=== PATIENT | female | born 1975 ===

== ENCOUNTER 2017-11-16 18:04 | Emergency (ER) | payer OTHER ==
[2017-11-16 18:30] VITALS: RESP 18; O2SAT 100
[2017-11-16 19:51] LABS: BASO % 0.6 % (0.0-2.0); EOS # 0.1 K/uL (0.0-0.7); EOS % 1.3 % (0.0-4.0); HEMOGLOBIN 13.5 g/dL (11.0-16.0); LYMPH # 2.1 K/uL (1.0-4.3); MEAN CELL VOLUME 87.3 fL (81.0-99.0); MEAN CORPUSCULAR HEMOGLOBIN 29.6 pg (27.0-31.0); MEAN CORPUSCULAR HGB CONC 33.9 g/dL (33.0-37.0); MEAN PLATELET VOLUME 7.9 fL (7.2-11.7); MONO # 0.5 K/uL (0.0-0.8); MONO % 6.5 % (0.0-10.0); NEUT # 5.4 K/uL (1.8-7.0); NEUT % 65.6 % (50.0-75.0); RBC 4.55 Mil/uL (3.80-5.20); RED CELL DISTRIBUTION WIDTH 13.2 % (11.5-14.5); WHITE BLOOD COUNT 8.2 K/uL (4.8-10.8)
--- NOTE | 2017-11-16 19:51 | C.PDOC ---
History Of Present Illness 42yo female, with no known past medical history, originally from [facility] but moved to the 6[place] ago, is complaining of pain to right side of her neck. She states she has a mass on her neck for "a long time" which has increased in size over the past year. Patient states the past 3 days, she had had pain to the right side of her neck. Patient states in the past, she has been informed that she has thyroid nodules but has not taken any medication for her symptoms. She also reports occasional episodes of palpitations. Patient denies any headache, fever, chills, heat/cold intolerance, weight changes. Patient's LMP was on . She has no other medical complaints. Time Seen by Provider: 11/16/17 19:15 Chief Complaint (Nursing): ENT Problem History Per: Patient History/Exam Limitations: no limitations Onset/Duration Of Symptoms: Days (3) Current Symptoms Are (Timing): Still Present Additional History Per: Patient Past Medical History Reviewed: Historical Data, Nursing Documentation, Vital Signs Vital Signs: Last Vital Signs Temp 97.8 F 11/16/17 22:21 Pulse 70 11/16/17 22:21 Resp 18 11/16/17 22:21 BP 110/70 11/16/17 22:21 Pulse Ox 100 11/16/17 22:27 Surgical History: No Surg Hx Family History: States: No Known Family Hx - Social History Hx Alcohol Use: No Hx Substance Use: No - Immunization History Hx Tetanus Toxoid Vaccination: No Hx Influenza Vaccination: No Hx Pneumococcal Vaccination: No Review Of Systems Except As Marked, All Systems Reviewed And Found Negative. Constitutional: Negative for: Fever, Chills, Weight loss, Other (heat/cold intolerance) Musculoskeletal: Positive for: Neck Pain Neurological: Negative for: Headache Physical Exam - Physical Exam Appears: Non-toxic, No Acute Distress Skin: Warm, Dry Head: Atraumatic, Normacephalic Eye(s): bilateral: Normal Inspection, PERRL, EOMI Ear(s): Bilateral: Normal Nose: Normal Oral Mucosa: Moist Throat: Normal, No Erythema, No Exudate Neck: Normal ROM, Supple, Other (mass noted to anterior neck; tenderness to right side of thyroid, area enlarged with nodule. No erythema noted.) Chest: Symmetrical Cardiovascular: Rhythm Regular, No Murmur Respiratory: Normal Breath Sounds, No Wheezing Gastrointestinal/Abdominal: Normal Exam, Soft, No Tenderness Extremity: Bilateral: Atraumatic, Normal Color And Temperature, Normal ROM Neurological/Psych: Oriented x3, Normal Speech Gait: Steady ED Course And Treatment - Laboratory Results Result Diagrams: 11/16/17 19:47 11/16/17 19:47 Lab Interpretation: No Acute Changes ECG: Interpreted By Me, Viewed By Me ECG Rhythm: Sinus Rhythm ECG Interpretation: No Acute Changes Rate From EC O2 Sat by Pulse Oximetry: 100 (RA) Pulse Ox Interpretation: Normal - CT Scan/US Thyroid Us Other Rad Studies (CT/US): Read By Radiologist, Radiology Report Reviewed CT/US Interpretation: US Thyroid FINDINGS: Left thyroid lobe: 4.4 x 1.0 x 1.4 cm in size. 0.2 x 0.1 x 0.2 cm cyst or nodule within midpole. Right thyroid lobe: 6.7 x 2.6 x 3.2 cm in size. 3.6 x 2.2 x 3.1 cm heterogeneous nodule with. peripheral vascularity within midpole. Isthmus: 0.32 cm in width. No nodules. Lymph nodes: No lymphadenopathy. IMPRESSION: 1. Heterogeneous nodule within right lobe, indeterminate. Clinical correlation and follow up are. recommended. 2. Incidental/non-acute findings are described above. Neck CT Other Rad Studies (CT/US): Read By Radiologist, Radiology Report Reviewed CT/US Interpretation: Accession No. : [id number]. Patient Name / ID : JENNIFFER POWELL / [id number]. Exam Date : 11/16/2017 21:28:56 ( Approved ). Study Comment : Sex / Age : F / 42Y. Creator : Taye Anderson MD. Dictator : Intervention Analyst : [place] : Taye Anderson MD. Approver2 : Report Date : 11/16/2017 22:00:00. My Comment : . [facility]. [address] [place] [id number]. Tel. no. . . . Patient Name: ANDRE PEREZ . Pt. Address: [address] [place] [address]. Rec #: [id number]. [place] [address]: Africa Ayoub Pt Order Location: [facility] : 1975 Female Age: 42 Order #: [id number]. Reason for exam: right neck mass. . . . . . CT Scan. . . NECK SOFT TISSUE W/CONTRAST Exam Date: . . This imaging exam was performed at [facility]. EXAM: CT Neck With Intravenous Contrast. . CLINICAL HISTORY: 42 years old, female; Signs and symptoms; Mass, lump, or swelling in neck;. Additional info: Right neck mass. . TECHNIQUE: Axial computed tomography images of the neck with intravenous contrast. All. CT scans at this facility use one or more dose reduction techniques, viz.: automated exposure control; ma/kV adjustment per patient size (including. targeted exams where dose is matched to indication; i.e. head); or iterative. reconstruction technique. Coronal and sagittal reformatted images were created and reviewed. . CONTRAST: 100 mL of visipaque 320 administered intravenously. . COMPARISON: No relevant prior studies available. . FINDINGS: Nasopharynx: Unremarkable. Oropharynx: No significant tonsillar enlargement. No peritonsillar abscess. Hypopharynx: Unremarkable. Larynx: Unremarkable. Normal epiglottis. Trachea: Unremarkable. Retropharyngeal space: Unremarkable. Submandibular/parotid glands: Unremarkable. Glands are normal in size. Thyroid: 2.7 x 2.3 x 3.4 cm heterogeneous nodule within right lobe. Bones/joints: No acute fracture. Soft tissues: Unremarkable. Vasculature: No acute findings. Lymph nodes: No pathologically enlarged lymph nodes. Sinuses: Unremarkable. No air-fluid levels. Mastoid air cells: No mastoid effusion. Orbits: Unremarkable as visualized. Lung apices: Predominately linear, partially calcified but partially. spiculated opacity within right lung apex. Lungs: Several calcified granulomas. . IMPRESSION: 1. Thyroid nodule. See ultrasound report. Clinical correlation and follow up. are recommended. 2. Probable right apical scarring. Suggest followup to ensure stability. 3. Incidental/ non-acute findings are described above. . . THIS REPORT CONTAINS FINDINGS THAT MAY BE CRITICAL TO PATIENT CARE. The. findings were verbally communicated via telephone conference with physician. culinary assistant Africa Scott at 10:00 PM EDT on 11/16/2017. The findings were. acknowledged and understood. . Dictated By: Taye Anderson MD. Dictated Date/Time: 11/16/172199. Signed By: Taye Anderson MD. Date Signed: 11/16/172199. Transcribed By: [facility]. Transcribe Date/Time: 11/16/172199 Medical Decision Making Medical Decision Making: Impression: anterior neck mass and pain Plan: * EKG * Labs * Thyroid US Progress: Labs reviewed and unremarkable, normal thyroid profile and no leukocytosis. EKG was normal sinus. Imaging reports reviewed, see full report. US Thyroid FINDINGS: IMPRESSION: 1. Heterogeneous nodule within right lobe, indeterminate. Clinical correlation and follow up are recommended. 2. Incidental/non-acute findings are described above. CT Neck: IMPRESSION: 1. Thyroid nodule. See ultrasound report. Clinical correlation and follow up are recommended. 2. Probable right apical scarring. Suggest followup to ensure stability. 3. Incidental/non-acute findings are described above. Re-Eval: Patient remained well, laying comfortably on stretcher in no distress. She has no fever and normal stable vital signs. Discussed results with patient, and copy of lab and imaging reports provided. I explained she will need to follow up in clinic for further care. Patient feels comfortable going home and will be discharged. Instructed to return to ER if symptoms worsen or new symptoms arise. Disposition Counseled Patient/Family Regarding: Studies Performed, Diagnosis, Need For Followup - Disposition Referrals: Mel Kumar MD [Staff Provider] - [place] [facility] [Outside] Disposition: HOME/ ROUTINE Disposition Time: 22:06 Condition: GOOD Additional Instructions: Your labs were normal Your ultrasound and scan shows you have right sided nodule on thyroid You need to follow up with clinic for further care and will likely need biopsy You may call [facility] for any assistance [phone]. Tus laboratorios fueron normales Reynolds ultrasonido y exploracin muestra que tiene un ndulo en el lado derecho de la tiroides Debe seguir con la clnica para recibir ms atencin y es probable que necesite julita biopsia Puede llamar al servicio de sound effects person para obtener asistencia [phone]. Instructions: Thyroid Nodules Forms: [employer] (Kinyarwanda) Print Language: BELARUSIAN - POA Present On Arrival: None - Clinical Impression Clinical Impression: Thyroid nodule - PA / MANAGER OF MAINTENANCE / Resident Statement MD/DO has reviewed & agrees with the documentation as recorded. - Scribe Statement The provider has reviewed the documentation as recorded by the Scribe (Mariam Jaramillo) Provider Attestation: All medical record entries made by the Scribe were at my direction and personally dictated by me. I have reviewed the chart and agree that the record accurately reflects my personal performance of the history, physical exam, medical decision making, and the department course for this patient. I have also personally directed, reviewed, and agree with the discharge instructions and disposition.
[2017-11-16 19:54] LABS: HCG,QUALITATIVE URINE NEGATIVE (NEGATIVE)
[2017-11-16 19:56] LABS: SQUAMOUS EPITHIAL 1 /hpf (0-5); URINE BILIRUBIN NEGATIVE (NEGATIVE); URINE BLOOD 1+ (NEGATIVE); URINE CLARITY Clear (Clear); URINE COLOR Yellow (YELLOW); URINE GLUCOSE (UA) NORMAL (Normal); URINE LEUKOCYTE ESTERASE NEG Leu/uL (Negative); URINE PROTEIN NEGATIVE (NEGATIVE); URINE UROBILINOGEN NORMAL mg/dL (0.2-1.0)
[2017-11-16 20:03] LABS: ALB/GLOB RATIO 1.3 (1.0-2.1); ALBUMIN 4.1 g/dL (3.5-5.0); ALT/SGPT 24 U/L (9-52); AST/SGOT 18 U/L (14-36); BLOOD UREA NITROGEN 20 mg/dL (7-17); CALCIUM 8.1 mg/dl (8.6-10.4); GFR AFRICAN-AMERICAN > 60; GFR NON-AFRICAN AMERICAN > 60
[2017-11-16] MEDS ORDERED: Iodixanol 320 MG/ML 100 ML BOTTLE IV ONE (21:00)
--- NOTE | 2017-11-16 21:51 | US ---
EXAM: US Soft Tissues Head and Neck, Thyroid CLINICAL HISTORY: 42 years old, female; Pain; Neck pain; Additional info: Painful ant area, h. O nodules TECHNIQUE: Real-time ultrasound scan of the thyroid gland and soft tissues of the neck with image documentation. COMPARISON: No relevant prior studies available. FINDINGS: Left thyroid lobe: 4.4 x 1.0 x 1.4 cm in size. 0.2 x 0.1 x 0.2 cm cyst or nodule within midpole. Right thyroid lobe: 6.7 x 2.6 x 3.2 cm in size. 3.6 x 2.2 x 3.1 cm heterogeneous nodule with peripheral vascularity within midpole. Isthmus: 0.32 cm in width. No nodules. Lymph nodes: No lymphadenopathy. IMPRESSION: 1. Heterogeneous nodule within right lobe, indeterminate. Clinical correlation and follow up are recommended. 2. Incidental/non-acute findings are described above.
--- NOTE | 2017-11-16 22:01 | CT ---
EXAM: CT Neck With Intravenous Contrast CLINICAL HISTORY: 42 years old, female; Signs and symptoms; Mass, lump, or swelling in neck; Additional info: Right neck mass TECHNIQUE: Axial computed tomography images of the neck with intravenous contrast. All CT scans at this facility use one or more dose reduction techniques, viz.: automated exposure control; ma/kV adjustment per patient size (including targeted exams where dose is matched to indication; i.e. head); or iterative reconstruction technique. Coronal and sagittal reformatted images were created and reviewed. CONTRAST: 100 mL of visipaque 320 administered intravenously. COMPARISON: No relevant prior studies available. FINDINGS: Nasopharynx: Unremarkable. Oropharynx: No significant tonsillar enlargement. No peritonsillar abscess. Hypopharynx: Unremarkable. Larynx: Unremarkable. Normal epiglottis. Trachea: Unremarkable. Retropharyngeal space: Unremarkable. Submandibular/parotid glands: Unremarkable. Glands are normal in size. Thyroid: 2.7 x 2.3 x 3.4 cm heterogeneous nodule within right lobe. Bones/joints: No acute fracture. Soft tissues: Unremarkable. Vasculature: No acute findings. Lymph nodes: No pathologically enlarged lymph nodes. Sinuses: Unremarkable. No air-fluid levels. Mastoid air cells: No mastoid effusion. Orbits: Unremarkable as visualized. Lung apices: Predominately linear, partially calcified but partially spiculated opacity within right lung apex. Lungs: Several calcified granulomas. IMPRESSION: 1. Thyroid nodule. See ultrasound report. Clinical correlation and follow up are recommended. 2. Probable right apical scarring. Suggest followup to ensure stability. 3. Incidental/non-acute findings are described above. THIS REPORT CONTAINS FINDINGS THAT MAY BE CRITICAL TO PATIENT CARE. The findings were verbally communicated via telephone conference with physician pest controller assistant Africa Scott at 10:00 PM EDT on 11/16/2017. The findings were acknowledged and understood.
[2017-11-16 22:22] VITALS: BP 110/70; PULSE 70; TEMP 97.8
== END 2017-11-16 22:25 | disposition home or self-care (01) ==
LOC: C.ER 18:04
DX: E04.1 Nontoxic single thyroid nodule (principal)
CPT/HCPCS: 70491; 76536; 80053; 81001; 84439; 84443; 84481; 84703; 85025; 93005; 99283; Q9967

== ENCOUNTER 2018-01-31 09:36 | Day surgery (SDC) | payer OTHER ==
[2018-01-31 09:42] VITALS: BMI 29.5
[2018-01-31 10:07] VITALS: O2SAT 100
--- NOTE | 2018-01-31 12:20 | CP.SDSHP ---
Same Day Surgery H & P - History Proposed Procedure: US guided FNA of right thyroid nodule Pre-Op Diagnosis: right thyroid nodule - Allergies Allergies: Allergies No Known Allergies Allergy (Verified 11/16/17 18:30) - Physical Exam Vital Signs: Vital Signs 01/31/18 09:40 Temperature 97.9 F Pulse Rate 73 Respiratory 20 Rate Blood Pressure 108/70 O2 Sat by Pulse 100 Oximetry Mental Status: Alert & Oriented x3 Neuro: WNL Heart: WNL - Impression Impression: Pt with a 3.6 cm right thyroid nodule. Plan US guided FNA. Pt. Evaluated Today:Candidate for Anesthesia & Procedure: No - Date & Time Date: 01/31/18 Time: 12:00 Short Stay Discharge - Short Stay Discharge Admitting Diagnosis/Reason for Visit: dx:E04.1-THYROID NODULE Disposition: HOME/ ROUTINE
--- NOTE | 2018-01-31 12:21 | PCM.SURG1 ---
Surgeon's Initial Post Op Note - Surgeon's Notes Surgeon: Dawit Medina MD Preschool Substitute Teacher: NONE Type of Anesthesia: Local Pre-Operative Diagnosis: Thyroid nodule Operative Findings: 3.6 cm right thyroid complex nodule Post-Operative Diagnosis: Thyroid nodule Operation Performed: US guided FNA of right thyroid nodule Specimen/Specimens Removed: 25 g FNA x 5 passes Estimated Blood Loss: EBL {In ML}: 1 Blood Products Given: N/A Drains Used: No Drains Post-Op Condition: Good Date of Surgery/Procedure: 01/31/18 Time of Surgery/Procedure: 12:15
[2018-01-31 12:57] VITALS: BP 120/72; PULSE 80; RESP 18; TEMP 98
--- NOTE | 2018-02-01 10:42 | US ---
PROCEDURE: Date of Procedure: 01/31/2018 PROCEDURE: 1. Ultrasound guided FNA of right thyroid nodule, CPT 88198 2. Ultrasound guidance for FNA, [address]256 Medications: 2cc 1% Lidocaine HISTORY: Enlarged right thyroid nodule. TECHNIQUE: Following informed consent and procedure time-out, a limited ultrasound patient's neck confirmed the presence of a 3.8 cm complex right thyroid nodule which is predominantly solid. After the patient's neck was prepped and draped in the usual sterile fashion, the skin was anesthetized with 1% lidocaine. Ultrasound-guided fine needle aspiration was then performed of the dominant right thyroid nodule. A total of 5 passes were made into the nodule with 25 gauge needle under ultrasound guidance. The FNA specimen was sent for routine pathology. Post biopsy ultrasound showed no hematoma. IMPRESSION: Ultrasound-guided FNA of the dominant right thyroid nodule.
== END 2018-01-31 13:00 | disposition home or self-care (01) ==
LOC: C.SPRAD 09:36
PROVIDERS: ATTEND Radiology Vascular & Interventional Radiology
DX: E04.2 Nontoxic multinodular goiter (principal)

== ENCOUNTER 2018-09-12 13:27 | Emergency (ER) | payer OTHER ==
[2018-09-12 13:27] VITALS: BMI 29.5
--- NOTE | 2018-09-12 16:06 | C.PDOC ---
History Of Present Illness 43 year old female presents to the ED for evaluation of subjective fever, chills, cough, and myalgias which began around 2-3 days ago. Patient denies nausea, vomiting, diarrhea. HPI: Influenza Time Seen by Provider: 09/12/18 15:04 Chief Complaint: Cough, Cold, Congestion History Per: Patient Exam Limitations: no limitations Past Medical History Reviewed: Historical Data, Nursing Documentation, Vital Signs Vital Signs: Last Vital Signs Temp 98.2 F 09/12/18 14:14 Pulse 105 H 09/12/18 14:14 Resp 14 09/12/18 14:14 BP 138/80 09/12/18 14:14 Pulse Ox 99 09/12/18 14:14 - Medical History PMH: No Chronic Diseases Denies: Chronic Kidney Disease Surgical History: No Surg Hx Family History: States: Unknown Family Hx - Social History Hx Alcohol Use: No Hx Substance Use: No - Immunization History Hx Tetanus Toxoid Vaccination: No Hx Influenza Vaccination: No Hx Pneumococcal Vaccination: No Review Of Systems Constitutional: Positive for: Fever, Chills Respiratory: Positive for: Cough Gastrointestinal: Negative for: Nausea, Vomiting, Diarrhea Musculoskeletal: Positive for: Other (diffuse myalgias ) Physical Exam - Physical Exam Appears: Non-toxic, No Acute Distress, Other (mildy uncomfortable ) Skin: Normal Color, Warm, Dry Head: Atraumatic, Normacephalic Eye(s): bilateral: Normal Inspection Oral Mucosa: Moist Neck: Supple Chest: Symmetrical, No Deformity, No Tenderness Cardiovascular: Rhythm Regular, No Murmur Respiratory: Normal Breath Sounds, No Rales, No Rhonchi, No Wheezing Extremity: Normal ROM, Capillary Refill (less than 2 seconds ) Neurological/Psych: Oriented x3, Normal Speech, Normal Cognition Medical Decision Making Medical Decision Making: Progress: Patient was found to be febrile prior to discharge. Tylenol PO given. On reassessment, patient is resting comfortably, showing no signs of distress and is stable for discharge. Patient is advised to follow up with PMD within 1-2 days for further evaluation. Will discharge home with Tylenol and Tamiflu. - ECG O2 Sat by Pulse Oximetry: 99 Disposition Counseled Patient/Family Regarding: Diagnosis, Need For Followup, Rx Given - Disposition Referrals: [facility] [Outside] [facility] [Outside] Disposition: HOME/ ROUTINE Disposition Time: 16:04 Condition: GOOD Additional Instructions: [place] Tylenol para el dolor segn las indicaciones. Acabado Tamiflu. Aumentar el reposo en cama y aumentar la ingesta de lquidos. Seguimiento en clnica mdica en pocos patel. Regrese a la lizzie de emergencias para los sntomas peores. Take Tylenol for pain as directed. Finish Tamiflu. Increase bed rest and increase fluid intake. Follow up in medical clinic in a few days. Return to ER for worse symptoms. Prescriptions: Acetaminophen [Tylenol 325mg tab] 650 mg PO Q6 #30 tab Oseltamivir Phosphate [Tamiflu] 75 mg PO BID #10 capsule Instructions: Influenza (ED) Forms: Gen Discharge Inst Cuban, [employer] (Cuban) Print Language: SINGAPOREAN - Clinical Impression Clinical Impression: Influenza-like illness - PA / GLOVE TURNER / Resident Statement MD/DO has reviewed & agrees with the documentation as recorded. - Scribe Statement The provider has reviewed the documentation as recorded by the Scribe (Shruti Liriano) All medical record entries made by the Scribe were at my direction and personally dictated by me. I have reviewed the chart and agree that the record accurately reflects my personal performance of the history, physical exam, medical decision making, and the department course for this patient. I have also personally directed, reviewed, and agree with the discharge instructions and disposition.
[2018-09-12 16:24] VITALS: BP 120/77; PULSE 104; RESP 18; TEMP 102.4
[2018-09-12 20:57] VITALS: O2SAT 99
== END 2018-09-12 16:27 | disposition home or self-care (01) ==
LOC: C.ER 13:27
DX: J11.1 Influenza due to unidentified influenza virus with other respiratory manifestations (principal)